=== PATIENT | female | born 1965 | race Caucasian/White ===

== ENCOUNTER 2019-04-06 08:14 | Emergency (ER) | payer OTHER, SELFPAY ==
[2019-04-06 08:15] VITALS: BP 135/75; PULSE 81; RESP 16; TEMP 36.4; O2SAT 98; BMI 29.2
--- NOTE | 2019-04-06 08:33 | ED.DCSUM_ITS ---
History of Present Illness Chief Complaint: Burn Informant: Patient Occurred: Weeks - 2 Mechanism/Context: Burn, Work Related Timing: Continuous Quality of Pain: - - sore Location: left middle finger Current Severity: Mild Maximum Severity: Mild Worsened by: palpation Relieved by: leaving alone Associated Symptoms: Negative for: Parasthesia, Weakness, Loss of Funtion Narrative: Patient states she accidentally burned her left long and ring fingers at work 2 weeks ago on a hot glue gun. She filled out an initial report while she was at work and was told to either go to the ER or [facility], but she has not seen a healthcare provider since the burn occurred till coming today. She states she has been covering it at work and leaving it open while at home. She has had no increase in pain, it has actually been feeling better. There is a slight amount of redness around the wound that has not been getting worse. She has had no discharge. She is simply here to have it evaluated because it is not healed yet, whereas the one on her ring finger is completely healed. The wounds were painful when they first occurred. She has had no numbness. She has had no fevers or systemic symptoms. Tetanus Immunization: Unknown - Past Medical History (1) Hypothyroidism Status: Chronic Past Medical History - Allergies and Home Meds Allergies/Adverse Reactions: Allergies No Known Allergies Allergy (Verified 04/06/19 08:18) Primary Care Physician: Sourav Parker DO [Primary Care Provider] - Lives: Alone Smoking Status: Current every day smoker Review of Systems General: Denies: Chills, Fever Musculoskeletal: Denies: Swelling, Extremity Pain Skin: Reports: Wounds. Denies: Rash Neurological: Denies: Weakness, Numbness Physical Exam Vital Signs/Narrative: Vital Signs Temp Pulse Resp BP Pulse Ox 04/06/19 08:15 97.6 F L 81 16 135/75 H 98 General: Well nourished, Well developed Head: Normocephalic, Atraumatic Extremeties: Full range of motion throughout all fingers and joints of the left hand, no tenderness. See skin exam for wound information. Skin: Normal color, - - 1.5 cm x 0.5 cm healing wound at the ulnar aspect of the left long finger at the level of the proximal phalanx. It is filled with granulation tissue. There is no discharge or abscess or swelling. There is a very slight amount of erythema at the edge of the wound only. There is no tenderness. There is no lymphangitis. She has what appear to be recently healed smaller wounds on the left ring finger that are close to the other wound on the right long finger, at the levels of the proximal phalanx and PIPJ. Neurological: Alert, Oriented x3, Cranial nerves II-XII grossly intact, Normal Strength, Normal Sensation, Normal Gait Psychological: Normal affect, Normal Mood Diagnostic/Tx/Re-eval - Medical Decision Making Patient was reassured. This appears to be healing well. It appears that this wound is probably bigger/wider than the other ones, she confirms that it is. I advised that she continue to do Band-Aid/dressing changes using a small amount of antibiotic ointment, and advised her that other than bathing/showering and avoiding scrubbing it aggressively, she does not need to leave it open to the air. We gave her [facility] information for her to follow-up with as needed. She states she has had no issues performing her normal job duties since she had this occur. After discussing pros and cons, she desired to have her tetanus updated today, her last one was over 10 years ago and unknown exactly when, she has been immunized in the past remotely. ED Disposition - Plan for ED Patient: Disposition: Home or Assisted Living Diagnosis: Visit for wound check, Burn of finger of left hand, second degree, Tetanus- diphtheria (Td) vaccination Instructions: WOUND CHECK, Burn F/U (No Infection) Referrals: [facility] [GROUP OF PHYSICIANS] - As Needed
[2019-04-06] MEDS: Diphth,Pertuss(Acell),Tet Vac 0.5 ML Vial IM (08:41)
== END 2019-04-06 09:01 | disposition home or self-care (01) ==
LOC: ED 08:52
PROVIDERS: Emergency Provider Emergency Medicine; PCP Student in an Organized Health Care Education/Training Program
DX: T23.222A Burn of second degree of single left finger (nail) except thumb, initial encounter (principal); Z23 Encounter for immunization; E03.9 Hypothyroidism, unspecified; F17.200 Nicotine dependence, unspecified, uncomplicated; Z79.899 Other long term (current) drug therapy
CPT/HCPCS: 90471; 90715; 99282